=== PATIENT | female | born 1935 | race Caucasian/White ===

== ENCOUNTER 2016-12-09 17:14 | Emergency (ER) | payer OTHER ==
[~2016-12-09] VITALS: Ht 152.4 cm; Wt 66.3 kg
[~2016-12-09 17:14] MED LIST: AMBIEN5 MG PO; AMLODIPINE BESYL5 MG PO; CIPRO500 MG PO; DESYREL100 MG PO; FLAGYL500 MG PO; HYDROCHLOROTHIA50 MG PO; LATANOPROST2.5 ML BOTH EYES; LEXAPRO5 MG PO; LISINOPRIL5 MG PO; LORTAB 5-325 M1 EACH PO; LUMIGAN 0.50 DROP/22 BOTH EYES; METRONIDAZOLE500 MG PO; MYCOSTATIN 100,60 ML PO; MYOFLEX TP; NORVASC5 MG PO; OMEPRAZOLE40 M1 PO; PANTOPRAZOLE SO40 MG PO; PAXIL10 MG PO; PAXIL20 MG PO; REQUIP0.25 MG PO; REQUIP1 MG PO; SYNTHROID50 MCG PO; TYLENOL REGULA325 MG PO
[2016-12-09 17:58] LABS: HEMATOCRIT 43.1 % (36.0-46.0); MCH 31.8 PG (29.0-34.0); MCHC 34.6 G/DL (30.0-36.0); MCV 91.9 FL (83-99); MEAN PLAT.VOLUME 10.1 uM^3 (9.5-12.4); PLATELET COUNT 330 K/uL (156-360); RBC DIS.WIDTH-CV 13.4 % (11.8-14.6); RBC DIS.WIDTH-SD 43.7 % (39-53); RED BLOOD COUNT 4.69 M/uL (3.80-5.20); WHITE BLOOD COUNT 17.8 K/uL (4.1-10.2)
[2016-12-09 18:06] LABS: CHLORIDE 102 mEq/L (99-109); POTASSIUM 4.2 mEq/L (3.7-5.4); SODIUM 138 mEq/L (136-147)
[2016-12-09 18:08] LABS: GLUCOSE 172 mg/dL (70-99)
[2016-12-09 18:09] LABS: ANION GAP 15 MEQ/L (2-14)
[2016-12-09 18:10] LABS: TOTAL BILIRUBIN 0.6 mg/dL (0.0-1.0)
[2016-12-09 18:11] LABS: ALKALINE PHOSPHATASE 90 IU/L (3-129)
[2016-12-09 18:12] LABS: GFR ESTIMATE (CALCULATED) 51 mL/min/
[2016-12-09 18:13] LABS: UREA NITROGEN (BUN) 24 mg/dL (9-23)
[2016-12-09 21:13] LABS: ADD MIUA? YES; BILIRUBIN NEGATIVE; BLOOD NEGATIVE; COLOR YELLOW ((YELLOW)); GLUCOSE (STRIP) NEGATIVE; KETONES TRACE; LEUKOCYTES SMALL; NITRITE NEGATIVE; PROTEIN (STRIP) TRACE; SPECIFIC GRAVITY 1.017 (1.000-1.030); UROBILINOGEN 0.2 MG/DL (0.2-1.0)
[2016-12-09] MEDS ORDERED: ROPINIROLE HCL1 MG PO (21:29)
[2016-12-09 21:38] LABS: BACTERIA NONE SEEN; CASTS NONE SEEN /LPF; CRYSTALS NONE SEEN; EPITHELIAL CELLS 1+; MUCUS 3+; RED BLOOD CELLS 0-5 /HPF (0-5); UCUL ADDED? NO; WHITE BLOOD CELLS 0-5 /HPF (0-5)
[2016-12-09] MEDS ORDERED: REGLAN10 MG PO (22:06)
[2016-12-09 22:24] VITALS: BP 149/78
== END 2016-12-09 22:32 | disposition home or self-care (01) ==
LOC: EME 17:14
DX: K52.9 Noninfective gastroenteritis and colitis, unspecified (principal); R05 Cough; R09.89 Other specified symptoms and signs involving the circulatory and respiratory systems; I10 Essential (primary) hypertension; Z87.891 Personal history of nicotine dependence
CPT/HCPCS: 80053; 81003; 85027; 99281; 99285; J1200; J2765; J7030

== ENCOUNTER 2017-11-12 19:40 | Observation (INO) | payer OTHER ==
[~2017-11-12] VITALS: Ht 152.4 cm; Wt 75.8 kg
[~2017-11-12 19:40] MED LIST changes: +REGLAN10 MG PO; +ROPINIROLE HCL1 MG PO
[2017-11-12 20:43] LABS: HEMATOCRIT 42.7 % (36.0-46.0); MCH 31.7 PG (29.0-34.0); MCHC 34.2 G/DL (30.0-36.0); MCV 92.6 FL (83-99); MEAN PLAT.VOLUME 10.3 uM^3 (9.5-12.4); PLATELET COUNT 336 K/uL (156-360); RBC DIS.WIDTH-CV 12.8 % (11.8-14.6); RBC DIS.WIDTH-SD 43.9 % (39-53); RED BLOOD COUNT 4.61 M/uL (3.80-5.20); WHITE BLOOD COUNT 20.3 K/uL (4.1-10.2)
[2017-11-12 20:56] LABS: CHLORIDE 105 mEq/L (99-109); POTASSIUM 4.7 mEq/L (3.7-5.4); SODIUM 140 mEq/L (136-147)
[2017-11-12 20:58] LABS: GLUCOSE 165 mg/dL (70-99)
[2017-11-12 20:59] LABS: ANION GAP 13 MEQ/L (2-14)
[2017-11-12 21:00] LABS: TOTAL BILIRUBIN 0.6 mg/dL (0.0-1.0)
[2017-11-12 21:02] LABS: ALKALINE PHOSPHATASE 86 IU/L (3-129); GFR ESTIMATE (CALCULATED) 57 mL/min/
[2017-11-12 21:03] LABS: DIRECT BILIRUBIN 0.3 mg/dL (0.0-0.3); UREA NITROGEN (BUN) 32 mg/dL (9-23)
[2017-11-12 21:05] LABS: LIPASE 16 U/L (1.0-51.0)
[2017-11-12 22:31] LABS: ADD MIUA? YES; BILIRUBIN NEGATIVE; BLOOD NEGATIVE; COLOR YELLOW ((YELLOW)); GLUCOSE (STRIP) NEGATIVE; KETONES 20; LEUKOCYTES SMALL; NITRITE NEGATIVE; PROTEIN (STRIP) NEGATIVE; SPECIFIC GRAVITY 1.018 (1.000-1.030); UROBILINOGEN 0.2 MG/DL (0.2-1.0)
[2017-11-12 22:35] LABS: BACTERIA NONE SEEN /HPF; EPITHELIAL CELLS RARE /HPF; MUCUS TRACE /LPF; RED BLOOD CELLS 0-5 /HPF (0-5); UCUL ADDED? NO; WHITE BLOOD CELLS 0-5 /HPF (0-5)
[2017-11-13 00:47] VITALS: BP 144/66
[2017-11-13 04:55] VITALS: BP 119/63
[2017-11-13 05:43] LABS: HEMATOCRIT 35.6 % (36.0-46.0); MCH 31.1 PG (29.0-34.0); MCHC 33.1 G/DL (30.0-36.0); MCV 93.9 FL (83-99); MEAN PLAT.VOLUME 10.1 uM^3 (9.5-12.4); PLATELET COUNT 280 K/uL (156-360); RED BLOOD COUNT 3.79 M/uL (3.80-5.20); WHITE BLOOD COUNT 11.9 K/uL (4.1-10.2)
[2017-11-13 05:54] LABS: ALKALINE PHOSPHATASE 57 IU/L (3-129); ANION GAP 7 MEQ/L (2-14); CHLORIDE 107 MEQ/L (99-109); GFR ESTIMATE (CALCULATED) 57 mL/min/; POTASSIUM 4.3 MEQ/L (3.7-5.4); SAMPLE HEMOLYSIS CHECK 0; SAMPLE ICTERIC CHECK 0; SAMPLE LIPEMIA CHECK 0; SODIUM 140 MEQ/L (136-147); TOTAL BILIRUBIN 0.4 MG/DL (0.0-1.0); UREA NITROGEN (BUN) 25 mg/dL (9-23)
[2017-11-13 05:55] LABS: GLUCOSE 105 mg/dL (70-99)
[2017-11-13 09:07] LABS: POINT-OF-CARE METER ID UU13113700
[2017-11-13 09:50] VITALS: BP 136/64
[2017-11-13] MEDS ORDERED: PAXIL20 MG PO (11:00)
[2017-11-13] MEDS ORDERED: NORVASC10 MG PO (11:00)
[2017-11-13] MEDS ORDERED: AMBIEN CR12.5 MG PO (11:01)
[2017-11-13] MEDS ORDERED: VITAMIN D22000 UNIT PO (11:03)
[2017-11-13] MEDS ORDERED: ICY HOT CREAM35.4 G1 TP (11:03)
[2017-11-13] MEDS ORDERED: VITAMIN C1000 MG PO (11:04)
[2017-11-13] MEDS ORDERED: CENTRUM SILVER1 EAC4 PO (11:04)
[2017-11-13 11:51] VITALS: BP 135/70
[2017-11-13 13:18] LABS: POINT-OF-CARE METER ID UU13113700
[2017-11-13] MEDS ORDERED: ZOFRAN ODT4 MG PO (13:52)
== END 2017-11-13 15:12 | disposition home or self-care (01) ==
LOC: EME → EDBD 19:40 → EDOF 22:28 → 5WEST 22:28 → ENRESERV 22:29 → 5WEST 23:40
PROVIDERS: Emergency Medicine; Hospitalist; Physician Assistant Medical
DX: K52.9 Noninfective gastroenteritis and colitis, unspecified (principal); E87.2 Acidosis; E86.0 Dehydration; R00.0 Tachycardia, unspecified; K58.9 Irritable bowel syndrome, unspecified; Z86.19 Personal history of other infectious and parasitic diseases; Z87.19 Personal history of other diseases of the digestive system; I10 Essential (primary) hypertension; E03.9 Hypothyroidism, unspecified; G25.81 Restless legs syndrome; F32.9 Major depressive disorder, single episode, unspecified; F41.9 Anxiety disorder, unspecified; Z90.49 Acquired absence of other specified parts of digestive tract; Z90.710 Acquired absence of both cervix and uterus; Z87.891 Personal history of nicotine dependence; Z60.2 Problems related to living alone; Z82.49 Family history of ischemic heart disease and other diseases of the circulatory system; Z83.3 Family history of diabetes mellitus; Z82.0 Family history of epilepsy and other diseases of the nervous system; Z88.1 Allergy status to other antibiotic agents; Z88.6 Allergy status to analgesic agent; Z88.8 Allergy status to other drugs, medicaments and biological substances
CPT/HCPCS: 74176; 80048; 80053; 80076; 81003; 82948; 83605; 83690; 85027; 87040; 87493; 99281; 99284; G0378; J0744; J1644; J2405; J2765; J7030; J7120; S0028

== ENCOUNTER 2018-01-13 22:08 | Inpatient (IN) | payer OTHER ==
[~2018-01-13] VITALS: Ht 165.1 cm; Wt 73.6 kg
[~2018-01-13 22:08] MED LIST changes: +AMBIEN CR12.5 MG PO; +CENTRUM SILVER1 EAC4 PO; +ICY HOT CREAM35.4 G1 TP; +NORVASC10 MG PO; +VITAMIN C1000 MG PO; +VITAMIN D22000 UNIT PO; +ZOFRAN ODT4 MG PO
[2018-01-13 23:10] LABS: BASOPHIL (%) 0.2 % (0-1); EOSINOPHIL (%) 0.4 % (0-5); EOSINOPHIL COUNT 0.1 K/uL (0-0.3); HEMATOCRIT 39.5 % (36.0-46.0); HEMOGLOBIN 13.4 G/DL (11.9-15.5); IMMATURE GRANULOCYTE (%) 0.5 % (0.0-0.7); LYMPHOCYTE COUNT 0.6 K/uL (1.0-2.8); MCH 31.2 PG (29.0-34.0); MCHC 33.9 G/DL (30.0-36.0); MCV 92.1 FL (83-99); MONOCYTE (%) 5.2 % (3-12); NEUTROPHIL (%) 90.7 % (45-76); NEUTROPHIL COUNT 17.7 K/uL (1.8-6.4); PLATELET COUNT 293 K/uL (156-360); RBC DIS.WIDTH-CV 13.4 % (11.8-14.6); RBC DIS.WIDTH-SD 45.7 % (39-53); RED BLOOD COUNT 4.29 M/uL (3.80-5.20); WHITE BLOOD COUNT 19.5 K/uL (4.1-10.2)
[2018-01-13 23:19] LABS: CHLORIDE 104 mEq/L (99-109); POTASSIUM 3.6 mEq/L (3.7-5.4); SODIUM 136 mEq/L (136-147)
[2018-01-13 23:21] LABS: GLUCOSE 135 mg/dL (70-99)
[2018-01-13 23:25] LABS: CREATININE 1.1 mg/dL (0.6-1.3); GFR ESTIMATE (CALCULATED) 51 mL/min/
[2018-01-13 23:26] LABS: UREA NITROGEN (BUN) 19 mg/dL (9-23)
[2018-01-14 00:30] LABS: APPEARANCE CLEAR ((CLEAR)); BILIRUBIN NEGATIVE; BLOOD NEGATIVE; COLOR STRAW ((YELLOW)); GLUCOSE (STRIP) NEGATIVE; KETONES NEGATIVE; LEUKOCYTES SMALL; NITRITE NEGATIVE; PROTEIN (STRIP) NEGATIVE; SPECIFIC GRAVITY 1.009 (1.000-1.030); UROBILINOGEN 0.2 MG/DL (0.2-1.0)
[2018-01-14 00:32] LABS: BACTERIA NONE SEEN /HPF; EPITHELIAL CELLS RARE /HPF; MUCUS TRACE /LPF; RED BLOOD CELLS 0-5 /HPF (0-5); UCUL ADDED? YES
[2018-01-14 04:25] VITALS: BP 155/87
[2018-01-14 08:28] VITALS: BP 148/71
[2018-01-14] MEDS ORDERED: FUROSEMIDE20 MG PO (08:56)
[2018-01-14 13:44] LABS: C DIFF TOXIN NEGATIVE (NEGATIVE)
[2018-01-14 15:25] VITALS: BP 115/62
[2018-01-14 20:34] VITALS: BP 124/60
[2018-01-14 23:59] VITALS: BP 100/51
[2018-01-15 04:14] VITALS: BP 109/48
[2018-01-15 07:17] LABS: ALBUMIN 3.2 G/DL (3.2-4.8); ALKALINE PHOSPHATASE 64 IU/L (3-129); ALT (GPT) 10 IU/L (3-49); AST (GOT) 19 IU/L (2-34); CHLORIDE 110 MEQ/L (99-109); CREATININE 0.9 MG/DL (0.6-1.3); GFR ESTIMATE (CALCULATED) > 59 mL/min/; GLUCOSE 106 mg/dL (70-99); POTASSIUM 3.8 MEQ/L (3.7-5.4); SODIUM 141 MEQ/L (136-147); TOTAL BILIRUBIN 0.3 MG/DL (0.0-1.0); TOTAL PROTEIN 5.7 G/DL (6.4-8.3); UREA NITROGEN (BUN) 10 mg/dL (9-23)
[2018-01-15 07:39] LABS: HEMATOCRIT 33.8 % (36.0-46.0); MCHC 32.5 G/DL (30.0-36.0); MCV 95.2 FL (83-99); PLATELET COUNT 235 K/uL (156-360); RBC DIS.WIDTH-CV 13.7 % (11.8-14.6); RBC DIS.WIDTH-SD 48.3 % (39-53); RED BLOOD COUNT 3.55 M/uL (3.80-5.20); WHITE BLOOD COUNT 11.3 K/uL (4.1-10.2)
[2018-01-15 08:17] VITALS: BP 130/72
[2018-01-15 11:57] VITALS: BP 107/55
[2018-01-15 16:13] VITALS: BP 113/58
[2018-01-15 20:04] VITALS: BP 117/54
[2018-01-15 23:46] VITALS: BP 120/58
[2018-01-16 03:42] VITALS: BP 111/56
[2018-01-16 06:30] LABS: HEMATOCRIT 34.2 % (36.0-46.0); HEMOGLOBIN 11.3 G/DL (11.9-15.5); MCH 31.4 PG (29.0-34.0); PLATELET COUNT 249 K/uL (156-360); RBC DIS.WIDTH-CV 13.5 % (11.8-14.6); RBC DIS.WIDTH-SD 47.2 % (39-53); WHITE BLOOD COUNT 8.8 K/uL (4.1-10.2)
[2018-01-16] MEDS ORDERED: FLAGYL250 MG PO (07:51)
[2018-01-16 07:56] VITALS: BP 136/65
== END 2018-01-16 12:15 | disposition home or self-care (01) | DRG 641 ==
LOC: EME → EDBD 22:08 → EME 22:08 → EDOF 01-14 02:47 → 2EASTP 01-14 02:47 → ENRESERV 01-14 02:48 → 2EASTP 01-14 03:33
PROVIDERS: Emergency Medicine; Family Medicine; Internal Medicine
DX: E86.0 Dehydration (principal); A08.4 Viral intestinal infection, unspecified; E87.6 Hypokalemia; I10 Essential (primary) hypertension; R09.02 Hypoxemia; E03.9 Hypothyroidism, unspecified; G25.81 Restless legs syndrome; Z86.19 Personal history of other infectious and parasitic diseases
CPT/HCPCS: 71045; 80048; 80053; 81003; 83605; 85025; 85027; 87040; 87086; 87177; 87493; 87502; 99281; 99284; J0696; J1200; J1650; J2405; J2765; J7030; S0030